=== PATIENT | male | born 1980 | race Caucasian/White ===

== ENCOUNTER 2016-12-31 11:53 | Emergency (ER) | payer OTHER ==
[~2016-12-31] VITALS: Ht 188 cm; Wt 94.5 kg
[2016-12-31 11:57] VITALS: BP 143/89; PULSE 50; RESP 16; O2SAT 100
--- NOTE | 2016-12-31 12:25 | ED.REPORT ---
HPI-Extremity Problem Lower Date of Service Dec 31, 2016 ED Provider: Eligio Rubin PA-C Bhumi is an otherwise healthy 36-year-old male who presents with a 5-6 day history of bilateral lower leg swelling. He states that it began shortly after running short distance, which is unusual for him. Admits constipation, which is not present for approximately a year as well as episodes of orthostatic lightheadedness which has been present for 2 years. He has a history of L5 fracture and rib fracture approximately 4 years ago due to a tree falling on him. Denies recent trauma, history of kidney disease, history of thyroid disease, course or brittle hair, dry or oily skin, urinary symptoms, abdominal pain.. Nursing Notes Stated Complaint: SWELLING Chief Complaint: General Complaint Nursing Notes Reviewed: Yes Allergies: Coded Allergies: No Known Allergies (Unverified , 12/31/16) No Active Prescriptions or Reported Meds General Time Seen by MD: 12:00 Chief Complaint Other (bilateral leg swelling) Past Medical History Past Medical History L5 fracture, rib fractures 4 years ago Denies other Family History Noncontributory Social History Other Social History: Good social support, Local resident Ambulatory Status Independent Review of Systems General: Denies fever, chills, malaise. HEENT: Denies congestion, headache, sore throat. Respiratory: Denies dyspnea, cough, shortness of breath, wheezing. Cardiovascular: Denies chest pain, palpitations. Gastrointestinal: Denies vomiting, diarrhea, abdominal pain. Genitourinary: Denies frequency, urgency, dysuria, hematuria. Otherwise as noted in HPI. Physical Exam General: Well appearing, well developed, well nourished, no acute distress. Head: Atraumatic, normocephalic. Eyes: No scleral icterus or injection. No discharge. Vision grossly intact. ENT: Voice clear, hearing grossly intact. Respiratory: Regular rate and rhythm. Breath sounds present, clear to auscultation and equal bilaterally. Cardiovascular: Regular rate and rhythm, without murmur, gallop or rub. No pedal edema. Gastrointestinal: Abdomen flat and non-tender without guarding or rebound. Bowel sounds normoactive. Skin: Warm and dry. Legs and feet: 2+ pitting edema from mid foot to mid asif. Skin pale cool and dry. Toes tanmay. PT pulses not appreciated, DP pulses 2+. Neurological: Gait normal, otherwise nonfocal. Psychological: Flat affect. Alert and oriented. Speech appropriate, linear and logical. Behavior appropriate. Initial Vital Signs Vital Signs (First) Date Time Temp Pulse Resp B/P Pulse Ox O2 Delivery O2 Flow Rate FiO2 12/31/16 11:57 36.4 50 16 143/89 100 Room Air Initial VS: Reviewed, Vital signs abnormal (bradycardia) Interpretation & Diagnostics Mild anemia noted Lab Results Interpretation Result Diagram: 12/31/16 1228 12/31/16 1228 Test 12/31/16 12:28 White Blood Count 7.3th/mm3 (3.8-10.1) Red Blood Count 4.13mil/mm3 (4.40-5.80) Hemoglobin 12.4g/dL (13.8-17.2) Hematocrit 39.2% (41.0-50.0) Mean Corpuscular Volume 94.9fL (81-100) Mean Corpuscular Hemoglobin 30.0pg (27.0-35.0) Mean Corpuscular Hemoglobin Concent 31.6% (32.0-37.0) Red Cell Distribution Width 13.0% (12.3-15.4) Platelet Count 292bil/L (150-400) Neutrophils (%) (Auto) 63.6% (40-74) Lymphocytes (%) (Auto) 23.3% (14-46) Monocytes (%) (Auto) 11.0% (4-12) Eosinophils (%) (Auto) 1.4% (0-5) Basophils (%) (Auto) 0.4% (0-3) Sodium Level 138mEq/L (134-144) Potassium Level 4.5mEq/L (3.5-5.2) Chloride Level 102mEq/L (97-108) Carbon Dioxide Level 26mmol/L (18-29) Blood Urea Nitrogen 10mg/dL (6-20) Creatinine 0.98mg/dL (0.76-1.27) Estimat Glomerular Filtration Rate 93mL/min (>59) Glucose Level 113mg/dL (60-99) Calcium Level 9.0mg/dL (8.5-10.1) Total Bilirubin 0.3mg/dL (0.0-1.2) Aspartate Amino Transf (AST/SGOT) 17U/L (0-50) Alanine Aminotransferase (ALT/SGPT) 19U/L (0-44) Alkaline Phosphatase 65U/L (25-150) Troponin T < 0.010ug/L (0.0-0.011) Pro-B-Type Natriuretic Peptide 94.96pg/mL (0-86) Total Protein 6.9g/dL (6.4-8.4) Albumin 3.8g/dL (3.4-5.0) Thyroid Stimulating Hormone (TSH) 1.460uIU/mL (0.450-4.500) Hold Tarango Top Tube Received (Received) ECG Interpretation ECG Interpretation: Sinus rhythm No acute ST changes Time: 14:09 Interpreted by: ED physician X-Ray Chest Interpretation Chest Xray Interpretation: Normal heart size, no effusion View: Portable, 1 view Interpretation / Wet Read by: Wet read ED physician Re-Eval/Medical Decision Med Decision/Clinical Course Hitesh Javier, DO: I Dr. Javier examined and interviewed the patient. On examination he has a positive hepatojugular reflux, bilateral lower extremity edema, JVD, laterally displaced PMI, soft and nontender abdomen. Clinically my best assessment this patient is that he has right-sided heart failure however his proBNP does not suggest this. Additionally but less likely would be nephrotic syndrome, he only has trace protein in his urine dip. He will be started on Lasix as he is hemodynamically stable. He will follow-up with his primary care and cardiology. Return and follow-up precautions given. Bradycardia and pitting edema noted. Mild anemia noted Consider myxedema, nephrotic syndrome, sodium retention, CHF, vascular disease, ascites, cirrhosis, drug-induced Source of Hx: Old records Re-Evaluation/Progress #1: Time of Eval: 14:15 Re-Evaluation/Progress Note: Dr. Tomlin is here to see the patient. Re-Evaluation/Progress #2: Time of Eval: 15:01 Re-Evaluation/Progress Note: Rechecked the patient. Discussed need for urine sample. Re-Evaluation/Progress #3: Time of Eval: 15:12 Re-Evaluation/Progress Note: Discussed results, diagnosis, and plan for discharge. All questions were addressed. Consultation : Referral / Consult Name: Suzi Tomlin MD Consulted With: Cardiology Call Returned at: 14:23 Chief Investigator: Will see in office, Agrees with jean marie, Agrees with plan Note: Dr. Tomlin evaluated the patient. She feels comfortable with plan to discharge on Lasix as long as labs look okay. She will see him in clinic. Counseled Regarding: Diagnosis, Lab results, Need for follow-up, When/why to return to ED Discharge & Departure Impression: Primary Impression: Peripheral edema Disposition: Home Discharge Condition All VS Reviewed: Yes Condition: Stable Patient Instructions: Congestive Heart Failure (ED) Additional Instructions: Thank you for entrusting us with your care today. We are concerned that you have congestive heart failure. This is treated with diuretics. I have written you a prescription for Lasix. Followup with Dr. Tomlin for re-evaluation. Call her office on Monday to schedule an appointment. You should also call your primary care provider on Monday to schedule a followup appointment and possible 24hr urine protein and nephrology referral. Return to the emergency department for any new or concerning symptoms. Referrals: Gracia Suero MD (PCP) Suzi Tomlin MD Attestation Portions of this note were transcribed by Lorena Howard. I, Dr. Javier personally performed the history, physical exam and medical decision-making; I reviewed and confirmed the accuracy of the information in the transcribed note. Signed by: Alden Horton, 12/30/2016 at 1520. copies to: Gracia Suero MD; Suzi Tomlin MD, Seth PA-C Dec 31, 2016 12:25 Lorena Howard Dec 31, 2016 14:15 Hitesh Javier DO Dec 31, 2016 15:11
[2016-12-31 12:36] LABS: BASOPHILS % (AUTO) 0.4 % (0-3); EOSINOPHILS % (AUTO) 1.4 % (0-5); Mean Corpuscular Volume 94.9 fL (81-100); NEUTROPHILS % (AUTO) 63.6 % (40-74); Platelet Count 292 bil/L (150-400)
[2016-12-31] MEDS ORDERED: predniSONE 20 mg Tablet PO ONE (14:20)
[2016-12-31 14:22] VITALS: BP 112/57; PULSE 66; RESP 16; O2SAT 96
[2016-12-31 14:52] LABS: TROPONIN T < 0.010 ug/L (0.0-0.011)
[2016-12-31] MEDS ORDERED: FURO-129 PO (15:12)
--- NOTE | 2016-12-31 15:23 | DRSVH ---
PROCEDURE: X-RAY CHEST, TWO VIEWS ([id number]) INDICATIONS: peripheral edema TECHNIQUE: 2 views of the chest were acquired. COMPARISON: [facility], CR, CHEST 2VW, 10/08/2015, 1:46. FINDINGS: Surgical changes and devices: None. Lungs and pleura: No pleural effusions or pneumothorax. Lungs are clear. Mediastinum: Mediastinal contours are normal. Heart size is normal. Bones and chest wall: No suspicious bony abnormalities. Soft tissues appear unremarkable. IMPRESSION: No acute cardiopulmonary disease process. Dictated by: Isha Holden MD, PhD on 12/31/2016 at 15:20 Approved by: Isha Holden MD, PhD on 12/31/2016 at 15:21
[2016-12-31 15:27] VITALS: BP 112/57; PULSE 66; RESP 16; O2SAT 96
--- NOTE | 2016-12-31 19:31 | CONS ---
[address] [address] CONSULTATION REPORT PATIENT: MARC HOFFMAN : 1980 MR#: [id number] ADMIT: 12/31/2016 JOB ID: [id number] DATE OF SERVICE: 12/31/2016 CARDIOLOGY CONSULTATION: CHIEF COMPLAINT: Peripheral edema. HISTORY OF PRESENT ILLNESS: The patient is a 36-year-old man with worsening edema that started about two weeks ago. Apparently he was seen in urgent care on December 29 for this problem. He was told to get some lab work done and follow up for recheck in the residency clinic. His lab work December 29 was reassuring. He came back to the residency clinic on December 31 and was unfortunately once again found to have edema. 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 PAST MEDICAL HISTORY: Broke L4-L7 vertebrae three years ago. SOCIAL HISTORY: He and uses meth. He does not smoke. FAMILY HISTORY: No family members with heart failure that he knows of. ALLERGIES: No known drug allergies. HOME MEDICATIONS: None. REVIEW OF SYSTEMS: No bright red blood per rectum, hematuria, or shortness of breath. Ten point review of systems is negative. PHYSICAL EXAMINATION: Temperature 36.4, blood pressure 143/89, pulse 50, satting 100% on room air. Very well-nourished man. No apparent distress. Eyes: No scleral icterus. Heart: Normal S1, S2. Laterally displaced PMI. No murmurs. The PMI is strong so I think his EF is maybe mildly reduced, but not much reduced. Lungs are clear anteriorly. Abdomen is soft, with positive bowel sounds. Extremities show mild edema bilaterally. His neck veins are elevated at about 10 cm of blood. LABORATORY DATA: His EKG shows ST elevation in leads II, III, aVF, and V2, V3, V4, V5, and V6, and that could be consistent with pericarditis. His initial troponin is negative. ProBNP is mildly elevated at 94. His labs basically look good. His chest x-ray shows no acute cardiopulmonary process. ASSESSMENT AND PLAN: I think it is okay for him to try Lasix 20 mg daily and follow up with me in Cardiology Clinic as an outpatient, either with myself or with a mid level. We can also order outpatient preclinic echocardiogram. Thank you very much for the opportunity to participate in his care.
== END 2016-12-31 15:28 | disposition home or self-care (01) ==
LOC: SED 11:53
DX: R60.0 Localized edema (principal); F12.10 Cannabis abuse, uncomplicated